=== PATIENT | female | born 1995 | race Hispanic/Latino ===

== ENCOUNTER 2021-02-12 09:52 | Emergency (ER) | payer OTHER ==
[~2021-02-12] VITALS: Ht 162.6 cm; Wt 78.9 kg
[2021-02-12 09:55] VITALS: BP 118/84
[2021-02-12] MEDS ORDERED: MAG/ALUM/SIMETH 30 ML UDCUP PO SCH (12:15)
[2021-02-12] MEDS ORDERED: LIDOCAINE HCL 2% VISCOUS 15 ML UDCUP PO SCH (12:15)
[2021-02-12] MEDS ORDERED: CEFTRIAXONE 1G VIAL IM SCH (12:15)
[2021-02-12 12:23] VITALS: BP 105/75
[2021-02-12] MEDS ORDERED: LIDOCAINE HCL 1% 20 ML VIAL ONE (13:27)
[2021-02-12] MEDS ORDERED: AMOX-429 PO (13:33)
[2021-02-12] MEDS ORDERED: ACET1TAB25 PO (13:33)
== END 2021-02-12 13:44 | disposition home or self-care (01) ==
LOC: EDH 09:52
DX: J02.0 Streptococcal pharyngitis (principal)
CPT/HCPCS: 36415; 86308; 87880; 96372; 99283; J0696